=== PATIENT | male | born 1990 | race Caucasian/White ===

== ENCOUNTER 2021-11-22 09:41 | Emergency (ER) | payer OTHER ==
[~2021-11-22] VITALS: Ht 157.5 cm; Wt 54.4 kg
[2021-11-22 09:42] VITALS: BP 130/78
--- NOTE | 2021-11-22 09:42 | NUR ---
PT SUJEY, BLS TO BED 09.
--- NOTE | 2021-11-22 09:43 | NUR ---
Yaakov jones in [facility] - 11/22/21 at [address] OROZCO AT BEDSIDE EVALUATING PT
--- NOTE | 2021-11-22 09:45 | NUR ---
31 y/o M BIBA from home c/o generalized weakness x 1 month. Patient A&Ox4, ambulatory, states fatigue and generalized body weakness. Pt states onset after brother and dog passing way. Denies SI, hallucinations, n/v/d, body pain, chest pain, SOB. States started taking depression medication last night. Bed locked in lowest position, side rails x 1. PMH/Sx/Meds: depression - lexapro, vistaril, ambien NKDA
[2021-11-22] MEDS ORDERED: ONDANSETRON 4 MG/2 ML VIAL IVP ONE (09:50)
[2021-11-22] MEDS ORDERED: KETOROLAC 30 MG/ML VIAL IVP ONE (09:50)
[2021-11-22] MEDS ORDERED: NACL 0.9% 1,000 ML IV ONE (09:50)
--- NOTE | 2021-11-22 10:04 | NUR ---
Bloodwork handed to CPT Delfina at ER bedside
[2021-11-22 10:39] LABS: BASOPHILS % (AUTO) 0.6 % (0.0-2.0); EOSINOPHILS # (AUTO) 0.1 K/uL (0-0.4); EOSINOPHILS % (AUTO) 1.4 % (0.0-4.0); HEMATOCRIT 46.1 % (36-52); HEMOGLOBIN 15.9 g/dL (12.0-18.0); LYMPHOCYTES # (AUTO) 1.3 K/uL (2.0-11.5); LYMPHOCYTES % (AUTO) 34.7 % (20.5-51.1); MEAN CORPUSCULAR HEMOGLOBIN 30 pg (27-31); MEAN CORPUSCULAR HGB CONC 35 g/dL (33-37); MEAN CORPUSCULAR VOLUME 87.2 fL (80-94); MONOCYTES # (AUTO) 0.5 K/uL (0.8-1.0); MONOCYTES % (AUTO) 13.7 % (1.7-9.3); NEUTROPHILS # (AUTO) 1.9 K/uL (1.8-7.7); NEUTROPHILS % (AUTO) 49.6 % (42.2-75.2); PLATELET COUNT (AUTO) 161 K/uL (140-450); RED BLOOD CELL COUNT(AUTO) 5.29 MIL/uL (4.20-6.10); RED CELL DISTRIBUTION WIDTH 13.8 % (11.6-13.7); WHITE BLOOD COUNT (AUTO) 3.8 K/uL (4.8-10.8)
[2021-11-22 10:42] LABS: ALBUMIN 4.1 g/dL (3.4-5.0); ANION GAP 10.2 (8-16); ASPARTATE AMINOTRANSFERASE 17 U/L (15-37); CARBON DIOXIDE 29.4 mmol/L (21-32); CHLORIDE 102 mmol/L (98-107); CREATININE 0.9 mg/dL (0.6-1.3); GFR ARICAN-AMERICAN 126 mL/min (>90); GLUCOSE 111 mg/dL (74-106); POTASSIUM 3.6 mmol/L (3.5-5.1); SODIUM SERUM 138 mmol/L (136-145); TOTAL BILIRUBIN 0.7 mg/dL (0.0-1.0); UREA NITROGEN, BLOOD 11 mg/dL (7-18)
[2021-11-22] MEDS ORDERED: MIDAZOLAM 2 MG/2 ML VIAL IVP ONE (11:20)
[2021-11-22 11:22] LABS: ACETAMINOPHEN < 0.5 ug/ml (10-30); SALICYLATE < 2.8 mg/dL (2.8-20.0)
[2021-11-22] MEDS ORDERED: MIDAZOLAM 2 MG/2 ML VIAL ONE (12:22)
[2021-11-22 12:28] VITALS: BP 110/64
--- NOTE | 2021-11-22 12:45 | NUR ---
Pt states + relief after medication. Denies pain. VSS. RR even/unlabored.
--- NOTE | 2021-11-22 12:51 | NUR ---
Patient discharged with v/s stable. Written and verbal after care instructions given and explained. Patient verbalized understanding. Ambulatory with steady gait. All questions addressed prior to discharge. Advised to follow up with PMD. Blood work results handed to patient.
== END 2021-11-22 12:51 | disposition home or self-care (01) ==
LOC: MED 09:41
DX: R53.1 Weakness (principal); M79.18 Myalgia, other site; F32.9 Major depressive disorder, single episode, unspecified; Y90.0 Blood alcohol level of less than 20 mg/100 ml
CPT/HCPCS: 36415; 80053; 85025; 96361; 96374; 96375; 99284; G0480; G0482; J1885; J2250; J2405; J7030

== ENCOUNTER 2022-01-01 14:56 | Emergency (ER) | payer OTHER ==
--- NOTE | 2022-01-01 15:22 | NUR ---
name called, no answer at this time
--- NOTE | 2022-01-01 15:30 | NUR ---
lwbs at this time
== END 2022-01-01 15:30 | disposition left against medical advice (07) ==
LOC: MED 14:56
DX: R53.83 Other fatigue (principal); Z53.21 Procedure and treatment not carried out due to patient leaving prior to being seen by health care provider

== ENCOUNTER 2022-03-31 16:10 | Emergency (ER) | payer OTHER ==
[~2022-03-31] VITALS: Ht 157.5 cm; Wt 65.8 kg
[2022-03-31 16:25] VITALS: BP 112/59
[2022-03-31] MEDS ORDERED: MECL-303 PO (16:45)
[2022-03-31] MEDS ORDERED: PSEU120T22 PO (16:45)
--- NOTE | 2022-03-31 17:01 | NUR ---
Patient discharged with v/s stable. Written and verbal after care instructions given and explained. Patient alert, oriented and verbalized understanding of instructions. Ambulatory with steady gait. All questions addressed prior to discharge. ID band removed. Patient advised to follow up with PMD. Rx of MECLIZINE, SUDAFED given. Patient educated on indication of medication including possible reaction and side effects. Opportunity to ask questions provided and answered.
== END 2022-03-31 17:01 | disposition home or self-care (01) ==
LOC: MED 16:10
DX: R42 Dizziness and giddiness (principal); Z98.890 Other specified postprocedural states
CPT/HCPCS: 99282

== ENCOUNTER 2022-05-02 18:31 | Emergency (ER) | payer OTHER ==
[~2022-05-02] VITALS: Ht 167.6 cm; Wt 54.0 kg
[~2022-05-02 18:31] MED LIST: MECL-303 PO; PSEU120T22 PO
[2022-05-02 18:43] VITALS: BP 127/44
[2022-05-02] MEDS ORDERED: DICYCLOMINE HCL LIQUID 20 MG, ALUMINUM HYD/MAG/SIMETHICONE 30 ML, LIDOCAINE VISCOUS 2% ... PO ONE ×3 (19:35)
--- NOTE | 2022-05-02 19:57 | NUR ---
TO BED 11 FROM LOBBY
--- NOTE | 2022-05-02 20:07 | NUR ---
Patient resting in bed, A/Ox4, chest rise and fall symmetrical, no c/o pain or s/s of distress.
[2022-05-02] MEDS ORDERED: ACET-10509 PO (20:20)
[2022-05-02] MEDS ORDERED: EMLAC TP (20:20)
[2022-05-02 20:28] VITALS: BP 121/84
== END 2022-05-02 20:28 | disposition home or self-care (01) ==
LOC: MED 18:31
DX: S29.011A Strain of muscle and tendon of front wall of thorax, initial encounter (principal); Z79.899 Other long term (current) drug therapy; Z98.890 Other specified postprocedural states; X58.XXXA Exposure to other specified factors, initial encounter; Y92.89 Other specified places as the place of occurrence of the external cause; Y93.89 Activity, other specified; Y99.8 Other external cause status
CPT/HCPCS: 71045; 99283

== ENCOUNTER 2022-10-05 19:07 | Emergency (ER) | payer OTHER ==
[~2022-10-05] VITALS: Ht 157.5 cm; Wt 54.4 kg
[~2022-10-05 19:07] MED LIST changes: +ACET-10509 PO; +EMLAC TP
[2022-10-05 19:12] VITALS: BP 144/62; PULSE 118; TEMP 98.2
--- NOTE | 2022-10-05 19:18 | NUR ---
MD EVALUATED PT IN TRIAGE.
[2022-10-05] MEDS ORDERED: KETOROLAC 30 MG/ML VIAL IVP ONE (19:20)
[2022-10-05] MEDS ORDERED: NACL 0.9% 1,000 ML IV ONE (19:20)
[2022-10-05 19:39] LABS: BASOPHILS % (AUTO) 0.1 % (0.0-2.0); EOSINOPHILS # (AUTO) 0.1 K/uL (0-0.4); EOSINOPHILS % (AUTO) 1.2 % (0.0-4.0); HEMATOCRIT 49.7 % (36-52); HEMOGLOBIN 17.3 g/dL (12.0-18.0); MEAN CORPUSCULAR HEMOGLOBIN 30 pg (27-31); MEAN CORPUSCULAR HGB CONC 35 g/dL (33-37); MONOCYTES # (AUTO) 0.5 K/uL (0.8-1.0); MONOCYTES % (AUTO) 5.3 % (1.7-9.3); NEUTROPHILS # (AUTO) 8.6 K/uL (1.8-7.7); NEUTROPHILS % (AUTO) 83.4 % (42.2-75.2); PLATELET COUNT (AUTO) 188 K/uL (140-450); RED BLOOD CELL COUNT(AUTO) 5.78 MIL/uL (4.20-6.10); RED CELL DISTRIBUTION WIDTH 13.8 % (11.6-13.7); WHITE BLOOD COUNT (AUTO) 10.3 K/uL (4.8-10.8)
--- NOTE | 2022-10-05 19:47 | NUR ---
32 YO M BIB SELF WITH C/C OF N/V SINCE THIS MORNING. DENIES BLOOD IN EMESIS. PT STATES HE EATS AND STILL FEELS AN EMPTINESS. REPORTS HE HAS A 4/10 HEADACHE, REFUSES TO TAKE MEDICATION STATES "ALL MEDICATION GIVES ME ANXIETY EVEN TYLENOL". PT REFUSED TORADOL. IV 20G TO RT AC INITATED, NS RUNNING ORDERED. CALL LIGHT IN REACH, PT RETURNED DEMONSTRATION OF CALL LIGHT USE. ALL NEEDS MET AT THIS TIME. BED LOCKED IN LOWEST POSITION, SIDE RAIL X2 FOR SAFETY. HX:ANXIETY NKA
--- NOTE | 2022-10-05 19:56 | NUR ---
32 Y/O M BIB SELF FROM HOME WITH C/C OF [place] XMORNING WITH A HEADACHE 07/08. PT DENIED TORADOL, STATED MEDICATION GIVES ME ANXIETY EVEN TYLENOL. PT IS A&OX4, SKIN INTACT, RESPIRATIONS EVEN AND UNLABORED. PT STATED HE WANTS TO TAKE A NAP TO HELP WITH THE HEADACHE. CALL LIGHT IS WITHIN REACH, BED AT LOWEST POSITION, SIDE RAILS UP X2 FOR SAFETY. PMH- ANXIETY NKA
[2022-10-05 19:57] LABS: ALBUMIN 4.5 g/dL (3.4-5.0); ANION GAP 10.1 (8-16); CARBON DIOXIDE 30.6 mmol/L (21-32); CREATININE 0.9 mg/dL (0.6-1.3); POTASSIUM 3.7 mmol/L (3.5-5.1)
--- NOTE | 2022-10-05 21:16 | NUR ---
Patient discharged with v/s stable. Written and verbal after care instructions given and explained. Patient verbalized understanding. Ambulatory with steady gait. All questions addressed prior to discharge. Advised to follow up with PMD. DR. ROGERS ORDERS REINFORCED
== END 2022-10-05 21:16 | disposition home or self-care (01) ==
LOC: MED 19:07
DX: T62.91XA Toxic effect of unspecified noxious substance eaten as food, accidental (unintentional), initial encounter (principal); R10.84 Generalized abdominal pain; R11.2 Nausea with vomiting, unspecified; R19.7 Diarrhea, unspecified; F41.9 Anxiety disorder, unspecified; Z79.899 Other long term (current) drug therapy; Y92.89 Other specified places as the place of occurrence of the external cause
CPT/HCPCS: 36415; 80053; 85025; 96360; 99283; J1885; J7030

== ENCOUNTER 2023-02-04 19:23 | Emergency (ER) | payer OTHER ==
[~2023-02-04] VITALS: Ht 167.6 cm; Wt 54.4 kg
[2023-02-04 19:30] VITALS: BP 150/72; PULSE 81; RESP 17; TEMP 98.2; O2SAT 99
[2023-02-04 22:15] VITALS: BP 150/72; PULSE 81; RESP 17; TEMP 98.2; O2SAT 99
== END 2023-02-04 22:15 | disposition home or self-care (01) ==
LOC: MED 19:23
DX: S16.1XXA Strain of muscle, fascia and tendon at neck level, initial encounter (principal); Z79.899 Other long term (current) drug therapy; V89.2XXA Person injured in unspecified motor-vehicle accident, traffic, initial encounter; Y93.89 Activity, other specified; Y92.410 Unspecified street and highway as the place of occurrence of the external cause; Y99.8 Other external cause status
CPT/HCPCS: 72040; 99283

== ENCOUNTER 2023-08-21 21:40 | Emergency (ER) | payer OTHER ==
[~2023-08-21] VITALS: Ht 167.6 cm; Wt 54.4 kg
[2023-08-21 21:50] VITALS: BP 124/80; PULSE 84; RESP 18; TEMP 97.7; O2SAT 98
== END 2023-08-21 23:50 | disposition left against medical advice (07) ==
LOC: MED 21:40
DX: M79.606 Pain in leg, unspecified (principal); Z53.21 Procedure and treatment not carried out due to patient leaving prior to being seen by health care provider

== ENCOUNTER 2023-11-16 12:16 | Emergency (ER) | payer OTHER ==
[~2023-11-16] VITALS: Ht 167.6 cm; Wt 49.9 kg
[~2023-11-16 12:16] MED LIST changes: -ACET-10509 PO; +ACET500T99 PO
[2023-11-16 12:19] VITALS: BP 145/72; PULSE 92; RESP 17; TEMP 97.9; O2SAT 96
[2023-11-16] MEDS: MECLIZINE 25 MG TAB PO ONE (12:45)
[2023-11-16] MEDS ORDERED: MECL-303 PO (13:27)
== END 2023-11-16 13:38 | disposition home or self-care (01) ==
LOC: MED 12:16
DX: R42 Dizziness and giddiness (principal); R03.0 Elevated blood-pressure reading, without diagnosis of hypertension; Z79.1 Long term (current) use of non-steroidal anti-inflammatories (NSAID); Z79.899 Other long term (current) drug therapy
CPT/HCPCS: 99283; J8597